=== PATIENT | male | born 2000 | race Caucasian/White ===

== ENCOUNTER 2022-08-27 20:03 | Emergency (ER) | payer BC ==
[~2022-08-27] VITALS: Ht 167 cm; Wt 70.0 kg
[2022-08-27] MEDS ORDERED: predniSONE 20 MG TAB PO ONE (20:15)
[2022-08-27] MEDS ORDERED: RT-ALBUTEROL SULF 2.5 MG/3 ML PRE-MIX VIAL INH ONE (20:15)
--- NOTE | 2022-08-27 20:20 | ED Cough/URI ---
General Chief Complaint: Respiratory Problems Stated Complaint: COUGH/SOA Source: patient Exam Limitations: no limitations (ADELAIDE NOEL) History of Present Illness Date Seen by Provider: Aug 27, 2022 Time Seen by Provider: 20:15 Initial Comments Patient is a 22-year-old male who presents ED for nasal congestion, cough, wheezing and shortness of breath. Symptoms started this past Monday with a wet productive cough. Started with clear sputum and has turned more into a brown mucus. Reports wheezing and shortness of breath with chest tightness. Patient reports history of smoking. He also reports body aches, fatigue and weakness, sore throat, ear pain, abdominal pain, nausea, vomiting, diarrhea, chest pain. No known fever at home. Denies vomiting, diarrhea. No one else at home with similar symptoms. Denies any recent travels or surgeries. No known history of asthma, heart disease. Patient took Advil at home. Patient also refinish penicillin for right lower molar dental infection. Patient also pulled out his right lower molar today as well (ADELAIDE NOEL) Allergies and Home Medications Allergies Coded Allergies: No Known Drug Allergies (Unverified , 08/27/22) Patient Home Medication List Home Medication List Reviewed: Yes (ADELAIDE NOEL) Azithromycin (Azithromycin) 250 Mg Tablet, 250 MG PO UD Prescribed by: SHIRA RAMEY on 08/27/222122 Prednisone (Prednisone) 20 Mg Tab, 40 MG PO DAILY Prescribed by: SHIRA RAMEY on 08/27/222122 Review of Systems Review of Systems Constitutional: chills; No fever; malaise, weakness EENTM: No ear pain, No blurred vision, No mouth pain, No mouth swelling Cardiovascular: No chest pain Gastrointestinal: No abdominal pain, No diarrhea, No nausea, No vomiting Genitourinary: No discharge, No dysuria, No frequency Musculoskeletal: No back pain, No joint pain Skin: No change in color, No change in hair/nails (ADELAIDE NOEL) All Other Systems Reviewed Negative Unless Noted: Yes (ADELAIDE NOEL) Physical Exam Vital Signs - First Documented 08/27/22 08/27/22 20:10 20:40 Temp 36.6 Pulse 100 Resp 18 B/P (MAP) 118/82 (94) Pulse Ox 95 O2 Delivery Room Air O2 Flow Rate 0 FiO2 21 (YUMIKO EVANS MD) Capillary Refill : (ADELAIDE NOEL) Height: '" Weight: lbs. oz. kg; BMI Method: General Appearance: WD/WN, no apparent distress Eyes: Bilateral Eye Normal Inspection, Bilateral Eye PERRL, Bilateral Eye EOMI HEENT: PERRL/EOMI, normal ENT inspection, TMs normal, pharynx normal Neck: non-tender, full range of motion, supple Respiratory: chest non-tender, no respiratory distress, wheezing Cardiovascular: regular rate, rhythm, no edema, no gallop, no JVD Gastrointestinal: normal bowel sounds, non tender, soft Extremities: normal range of motion, non-tender, normal inspection, no pedal edema Neurologic/Psychiatric: trust administrator II-XII nml as tested, no motor/sensory deficits, alert, normal mood/affect, oriented x 3 Skin: normal color, warm/dry (ADELAIDE NOEL) Progress/Results/Core Measures Suspected Sepsis SIRS Temperature: Pulse: Respiratory Rate: Blood Pressure / Mean: (ADELAIDE NOEL) Results/Orders Lab Results Laboratory Tests Test 08/27/22 20:15 Range/Units Influenza Type A (RT-PCR) Not Detected Not Detecte Influenza Type B (RT-PCR) Not Detected Not Detecte SARS-CoV-2 RNA (RT-PCR) Not Detected Not Detecte (YUMIKO EVANS MD) Medications Given in ED Current Medications Medications Dose Ordered Sig/Jono Route Start Time Stop Time Status Last Admin Dose Admin Albuterol Sulfate 1 gm ONCE ONCE IH 08/27/22 21:30 08/27/22 21:31 DC 08/27/22 21:46 1 GM Albuterol Sulfate 2.5 mg ONCE ONCE INH 08/27/22 20:15 08/27/22 20:16 DC 08/27/22 20:40 2.5 MG Prednisone 50 mg ONCE ONCE PO 08/27/22 20:15 08/27/22 20:16 DC 08/27/22 20:30 50 MG (YUMIKO EVANS MD) Vital Signs/I&O 08/27/22 08/27/22 08/27/22 20:10 20:40 21:56 Temp 36.6 Pulse 100 98 Resp 18 25 B/P (MAP) 118/82 (94) 116/83 Pulse Ox 95 94 94 O2 Delivery Room Air Room Air Room Air O2 Flow Rate 0 FiO2 21 (YUMIKO EVANS MD) Vital Signs/I&O Capillary Refill : (ADELAIDE NOEL) Departure Communication (PCP) Patient with decreased breath sounds lower lungs with some wheezing. Was given dose of prednisone albuterol nebulizer treatment with improvement. Oxygen ranging between 93 to 97% on room air. Initially was having difficulty talking secondary to shortness of breath. Chest x-ray was negative for pneumonia. COVID influenza negative. Concerning for reactive airway, bronchitis. Believes he may have had pneumonia as a kid. patient was observed here in the ED with continued improvement. Able to talk in complete sentences. Walking ambulation was above 93%. Patient continued to stay in the mid to lower 90s. Did not go lower than 92%. Recommend continue observation but patient was requesting to leave. Due to the brown mucus coughing with a history of smoking patient will be discharged with azithromycin. Will discharge with albuterol inhaler. 4 days worth of prednisone. Discussed smoking cessation of marijuana. Recommend fo llow-up your PCP in 2 to 3 days for reevaluation. If any developing chest pain or increased short of breath he will need to return back to ED. (ADELAIDE NOEL) Impression Primary Impression: Bronchitis Disposition: 01 HOME, SELF-CARE Condition: Stable Departure-Patient Inst. Decision time for Depature: 21:22 (ADELAIDE NOEL) Referrals: [facility] [place],LOCAL PHYSICIAN (PCP) Primary Care Physician Patient Instructions: Acute Bronchitis Scripts Azithromycin (Azithromycin) 250 Mg Tablet 250 MG PO UD, #6 TAB TAKE 2 TABLETS ON DAY ONE THEN TAKE 1 TABLET DAILY FOR FOUR MORE DAYS Prov: ADELAIDE NOEL 08/27/22 Prednisone (Prednisone) 20 Mg Tab 40 MG PO DAILY for 4 Days, #8 TAB Prov: ADELAIDE NOEL 08/27/22 ATTENDING PHYSICIAN NOTE: I was physically present as attending physician in the emergency department during the care of this patient, but I was not directly involved in the decision making or delivery of care for this patient. (YUMIKO EVANS MD) ADELAIDE NOEL Aug 27, 2022 20:20 YUMIKO EVANS MD Aug 28, 2022 04:44
--- NOTE | 2022-08-27 20:29 | Diagnostic Imaging Report ---
EXAM: Chest 1 view, AP/PA only INDICATION: Cough. Shortness of air. COMPARISON: None. FINDINGS: Normal heart size and central pulmonary vascularity. Lungs are clear. No pleural effusion or pneumothorax. No acute osseous finding. IMPRESSION: No acute cardiopulmonary finding. Dictated by: Dictated on workstation # [id number]
[2022-08-27] MEDS ORDERED: AZIT250T12 PO (21:23)
[2022-08-27] MEDS ORDERED: PRD20T PO (21:23)
[2022-08-27] MEDS ORDERED: RX-ALBUTEROL INHALER 8.5 GM HFA (PROAIR) IH ONE (21:30)
[2022-08-27 21:56] VITALS: BP 116/83
== END 2022-08-27 21:58 | disposition home or self-care (01) ==
LOC: ER 20:06
DX: J40 Bronchitis, not specified as acute or chronic (principal); Z79.1 Long term (current) use of non-steroidal anti-inflammatories (NSAID); Z20.822 Contact with and (suspected) exposure to COVID-19; Z87.891 Personal history of nicotine dependence
CPT/HCPCS: 71045; 87636; 94640

== ENCOUNTER 2022-11-20 14:16 | Emergency (ER) | payer BC ==
[~2022-11-20] VITALS: Ht 167 cm; Wt 70.0 kg
[~2022-11-20 14:16] MED LIST: AZIT250T12 PO; PRD20T PO
[2022-11-20 14:20] VITALS: BP 129/81
[2022-11-20] MEDS ORDERED: AMOX-355 PO (14:28)
--- NOTE | 2022-11-20 14:29 | ED EENT ---
History of Present Illness General Chief Complaint: Dental Problems/Pain Stated Complaint: TOOTH PAIN Nursing Triage Note: STATES A BACK BOTTOM RIGHT TOOTH FELL OUT LAST NIGHT. WANTS TO MAKE SURE IT IS ALL OUT AND IF NOT WOULD LIKE IT TO BE REMOVED BECAUSE HE CAN'T GO TO A DENTIST. Source: patient Exam Limitations: no limitations History of Present Illness Date Seen by Provider: November 20, 2022 Time Seen by Provider: 14:19 Initial Comments 52-year-old male presents emergency department today after he had a tooth break off at the root. He is not having any pain he just wants to get the rest of the tooth extracted today from the emergency department. He is worried about infection as well. He has an appointment at the [facility] dental in 2 weeks or so. No fevers or chills. All other systems reviewed and negative except documented per HPI. Voice recognition software was used to help create this chart Allergies and Home Medications Allergies Coded Allergies: No Known Drug Allergies (Unverified , 08/27/22) Patient Home Medication List Home Medication List Reviewed: Yes Amoxicillin/Potassium Clav (Augmentin 500-125 Tablet) 500 Mg-125 Mg Tablet, 1 EACH PO BID Prescribed by: PETROS SWENSON MD on 11/20/22 1428 Discontinued Medications Azithromycin (Azithromycin) 250 Mg Tablet, 250 MG PO UD Discontinued Reason: No Longer Taking Prescribed by: SHIRA RAMEY on 08/27/222122 Last Action: Discontinued Prednisone (Prednisone) 20 Mg Tab, 40 MG PO DAILY Discontinued Reason: No Longer Taking Prescribed by: SHIRA RAMEY on 08/27/222122 Last Action: Discontinued Review of Systems Review of Systems Constitutional: see HPI Past Ndgikqs-Peassm-Gxyfoo Hx Patient Social History Tobacco Use?: No Substance use?: Yes Substance type: Marijuana Family Medical History Reviewed Nursing Family Hx No Pertinent Family Hx Physical Exam Vital Signs Vital Signs - First Documented 11/20/22 14:20 Temp 36.5 Pulse 70 Resp 16 B/P (MAP) 129/81 (97) Pulse Ox 98 O2 Delivery Room Air Height, Weight, BMI Height: '" Weight: lbs. oz. kg; 25.00 BMI Method: General Appearance: WD/WN, no apparent distress Mouth/Throat: other (Right lower premolar is broken off at the base. No swelling. No tenderness to palpation.) Skin: normal color, warm/dry Progress/Results/Core Measures Results/Orders Vital Signs/I&O 11/20/22 14:20 Temp 36.5 Pulse 70 Resp 16 B/P (MAP) 129/81 (97) Pulse Ox 98 O2 Delivery Room Air Blood Pressure Mean: 97 Departure Communication (Admissions) Patient is hemodynamically stable. Advised would not be dental extractions in the emergency department. We will go ahead and put him on prophylactic antibiotics. He does have a dental appointment already scheduled and recommended to keep this. Impression Primary Impression: Dental caries Disposition: HOME, SELF-CARE Condition: Stable Departure-Patient Inst. Referrals: NO,LOCAL PHYSICIAN (PCP) Primary Care Physician [facility] [place] Patient Instructions: Fractured Tooth (DC) Add. Discharge Instructions: Please take the antibiotics as prescribed until they are gone. See the [facility] dental clinic at your earliest convenience for extraction. Unfortunately we do not do this from the emergency department. Return to the emergency department for any severe concerns. All discharge instructions reviewed with patient and/or family. Voiced understanding. Scripts Amoxicillin/Potassium Clav (Augmentin 500-125 Tablet) 500 Mg-125 Mg Tablet 1 EACH PO BID for 7 Days, #14 TAB Prov: PETROS SWENSON DO 11/20/22 PETROS SWENSON DO November 20, 2022 14:29
== END 2022-11-20 14:31 | disposition home or self-care (01) ==
LOC: EDUNIT# 14:16 → ER 14:17
DX: K02.9 Dental caries, unspecified (principal)
CPT/HCPCS: 99281